=== PATIENT | female | born 1960 | race Caucasian/White ===

== ENCOUNTER 2020-08-24 11:40 | Inpatient (IN) | payer OTHER ==
[~2020-08-24] VITALS: Ht 160 cm; Wt 83.0 kg
[2020-08-24 12:26] LABS: microscopic required? NO
[2020-08-24 12:40] LABS: UA SPECIFIC GRAVITY 1.015 (1.005-1.035); urine erythrocyte NEGATIVE (NEGATIVE)
[2020-08-24 12:55] LABS: BASOPHIL % 0.5 % (0-2); PLATELET COUNT 271 x10^3mcL (130-400); RED CELL DISTRIBUTION WIDTH 12.6 % (11.5-14.5)
[2020-08-24 12:56] LABS: CALCIUM 9.3 mg/dL (8.5-10.1); CHLORIDE SERUM 97 mmol/L (98-107); GFR1 60 mL/min; GLUCOSE SERUM 253 mg/dL (74-106); POTASSIUM SERUM 3.4 mmol/L (3.5-5.1); SODIUM SERUM 134 mmol/L (136-145)
[2020-08-24 13:08] LABS: ALKALINE PHOSPHATASE 110 U/L (46-116); ALT/SGPT 89 U/L (14-59); AST/SGOT 68 U/L (15-37); BILIRUBIN TOTAL 0.36 mg/dL (0.20-1.00); LIPASE 117 IU/L (73-393); T4(THYROXINE) 12.2 ug/dL (4.7-13.3); TOTAL PROTEIN, SERUM 7.9 g/dL (6.4-8.2)
[2020-08-24] MEDS ORDERED: DILT-XR180 MG PO (15:49)
[2020-08-24] MEDS ORDERED: LEVO-T175 MCG PO (15:49)
[2020-08-24] MEDS ORDERED: CENTRUM ADULTS1 EACH PO (15:50)
[2020-08-24] MEDS ORDERED: LIPI20 PO (15:50)
[2020-08-24] MEDS ORDERED: IRON236 MG PO (15:51)
[2020-08-24] MEDS ORDERED: GLIPIZIDE XL10 M1 PO (15:51)
[2020-08-24] MEDS ORDERED: LOSARTAN POTASS1 TA8 PO (15:52)
[2020-08-24] MEDS ORDERED: PRILOSEC OTC20 M1 PO (15:52)
[2020-08-24 16:30] LABS: AMPHETAMINE QUAL UR NONE DETECTED (See below)
[2020-08-24 16:34] LABS: FREE T4 1.73 ng/dL (0.76-1.46); FREE THYROXINE INDEX 4.5 ug/dL (1.4-4.5); T4(THYROXINE) 12.4 ug/dL (4.7-13.3)
[2020-08-24 16:37] LABS: T3 TOTAL 1.05 ng/mL
[2020-08-24 16:47] LABS: MAGNESIUM 1.6 mg/dL (1.8-2.4); PHOSPHOROUS 3.6 mg/dL (2.5-4.9)
[2020-08-24 16:50] LABS: CHOLESTEROL/HDL RATIO 5.9
[2020-08-24 19:03] VITALS: BP 142/90
[2020-08-24 22:59] VITALS: BP 155/68
[2020-08-25 06:12] VITALS: BP 131/65
[2020-08-25 09:06] VITALS: BP 148/74
[2020-08-25 11:24] LABS: BASOPHIL % 0.4 % (0-2); PLATELET COUNT 221 x10^3mcL (130-400); RED CELL DISTRIBUTION WIDTH 12.5 % (11.5-14.5)
[2020-08-25] MEDS ORDERED: METFORMIN HCL1000 MG PO (13:12)
[2020-08-25 13:22] VITALS: BP 146/77
[2020-08-25] MEDS ORDERED: JARDIANCE25 MG PO (13:29)
[2020-08-25] MEDS ORDERED: MIRALAX17 GM PO (13:30)
[2020-08-25] MEDS ORDERED: LEVAQUIN500 M1 PO (13:31)
[2020-08-25] MEDS ORDERED: FLAGYL500 MG PO (13:32)
[2020-08-25] MEDS ORDERED: FORTAMET1000 MG PO (13:36)
[2020-08-25 13:57] VITALS: BP 146/77
== END 2020-08-25 14:36 | disposition home or self-care (01) | DRG 392 ==
LOC: ED 11:40 → DU 15:49 → MU 17:45
PROVIDERS: Emergency Medicine; ADMIT Student in an Organized Health Care Education/Training Program; ATTEND Student in an Organized Health Care Education/Training Program
DX: K57.92 Diverticulitis of intestine, part unspecified, without perforation or abscess without bleeding (principal); E87.2 Acidosis; E87.1 Hypo-osmolality and hyponatremia; E11.9 Type 2 diabetes mellitus without complications; I10 Essential (primary) hypertension; E78.5 Hyperlipidemia, unspecified; D64.9 Anemia, unspecified; E03.9 Hypothyroidism, unspecified; E87.6 Hypokalemia; Z20.828 Contact with and (suspected) exposure to other viral communicable diseases; Z91.013 Allergy to seafood; Z79.899 Other long term (current) drug therapy; Z79.891 Long term (current) use of opiate analgesic; Z79.01 Long term (current) use of anticoagulants; Z79.84 Long term (current) use of oral hypoglycemic drugs
CPT/HCPCS: 82962; 84439; G0378; J1815; J1885; J1956; J2270; J2405; J3490; J7030; Q0092; Q9967